=== PATIENT | male | born 1955 | race African-American/Black ===

== ENCOUNTER 2017-04-12 11:20 | Inpatient (IN) ==
[2017-04-12] MEDS ORDERED: DEXTROSE 50% 25 GM/50 ML SYRINGE IV PRN (11:24)
[2017-04-12] MEDS ORDERED: GLUCAGON 1 MG VIAL IM PRN (11:24)
[2017-04-12] MEDS ORDERED: ACETAMINOPHEN 325 MG TABLET PO PRN (11:24)
[2017-04-12] MEDS ORDERED: ONDANSETRON 4 MG/2 ML VIAL IV PRN (11:24)
--- NOTE | 2017-04-12 11:39 | Family Practice History&Phys ---
Assessment and Plan (1) Recent cerebrovascular accident (CVA) Status: Acute Assessment and plan: Will admit to the hospital, rule out new CVA event, Labs , imaging CT head without contrast, cardiac evaluation today 2. Consult neurology, physical therapy, get swallow evaluation, 3. Add aspirin 325 mg daily, will hold blood pressure meds since his blood pressure is not that high. 4. For diabetes, will do sliding scale with fingersticks before every meal [facility]. Current Visit: Yes (2) Hypertension, essential Status: Chronic Current Visit: Yes (3) Type 2 diabetes mellitus Status: Chronic Current Visit: Yes (4) Nicotine dependence, cigarettes, uncomplicated Status: Chronic Current Visit: Yes (5) Alcohol abuse Status: Chronic Current Visit: Yes History of Present Illness Chief complaint: weakness of rt face, rt UE, and slurry speech since 04/09/17 History of present illness: Mr. Vargas is a 61 year old male pt came to the clinic as walkin , accompanied by , pt came to see eye clinic this AM , , he noticed stroke signs and advised pt to come to my clinic today, pt had symptoms of facial weakness, slurry speech 04/09/17 , went [facility] on 04/[facility], signed off AMA, noticed rt hand/arm new weakness, since yesterday pm, dropping things, walking ok, still has facial weakness rt , speech slurry, no problem swallowing , or taste, lisinopril causing him cough, no chest pain , palpitations, , headaches, dizziness, no head injury has h/o HTN/DM and smokes 1PPD /drinks 2-3 beers everyday,. Home Medications Medication Instructions Recorded Confirmed Type No Known Home Medications [No 03/18/17 03/21/17 History Known Home Medications] Allergies Allergy/AdvReac Type Severity Reaction Status Date / Time No Known Allergies Allergy Unverified 03/21/17 08:08 - Constitutional Constitutional: Present: as per HPI - EENT Eyes: Present: as per HPI Nose, mouth and throat: Present: as per HPI - Cardiovascular Cardiovascular: Present: as per HPI - Respiratory Respiratory: Present: as per HPI - Gastrointestinal Gastrointestinal: Present: as per HPI - Genitourinary Genitourinary: Present: as per HPI - Musculoskeletal Musculoskeletal: Present: as per HPI - Neurological Neurological: Present: as per HPI - Psychiatric Psychiatric: Present: as per HPI - Endocrine Endocrine: Present: as per HPI Medical,Surgical,& Family Hx - Medical History Cardio: History of: Hypertension No history of: Cardiac Dysrhythmia, CHF, [place], Valvular Heart Disease Neurology: No history of: Brain Aneurysm, Cerebrovascular Accident, Dementia, Migraine, Seizures HEENT: History of: Eye Problem (blurred vision), HEENT Problems (sinuses) Endocrine: History of: Diabetes Mellitus (NIDDM) Rheumatology: History of;: Rheumatoid Arthritis Respiratory: No history of: Obstructive Sleep Apnea Gastrointestinal: History of: GERD Musculoskeletal: History of: Back/Neck Problems (stiffness in neck) Hematology: No history of: Blood Transfusion Reaction Other: No history of: Anesthesia Reactions - Surgical History Cardiac Surgeries: Patient Denies: Cardiac Catheterization Thoracic Surgeries: Patient denies;: Organ Transplant Neurologic Surgeries: Patient denies: Brain Aneurysm HEENT Surgeries: Surgical HX of: Eye Surgery (Cataract Surgery) Abdominal Surgeries: Surgical HX of: Colonoscopy - Family History Family History: Reports;: Family Diabetes (sisters brothers), Family Heart Disease (father) - Social History Smoking Status: Current every day smoker Exam - Constitutional Vitals: From clinic. Temp 97.8, HR 89, RR 16, BP 130/90, Ht 68, Wt 138.6, BMI 21.07, Oxygen sat % 97. Exam: GENERAL APPEARANCE: alert and oriented, mildly confused, pleasant, in no acute distress, male patient was brought to the clinic in a wheelchair. HEENT: normal . EYES: extraocular movement intact (EOMI), conjunctiva clear, normal . NECK/THYROID: neck supple, full range of motion, no cervical lymphadenopathy, no thyromegaly . HEART: regular rate and rhythm, no murmurs, rubs, gallops . LUNGS: clear to auscultation bilaterally, no wheezes, rales, rhonchi . ABDOMEN: soft, nontender, nondistended, no organomegaly , bowel sounds present . EXTREMITIES: no edema . NEUROLOGIC: alert and oriented 2, speaks slurry, mildly confused, Angle of the mouth deviated to the left. Strength of the neck muscles decreased on the right side. Strength 5/5 left upper extremity, 4+/ 5 right upper extremity. Bilateral lower extremity strength 5/ 5. .
--- NOTE | 2017-04-12 12:06 | EKG Report ---
Stationary ECG Study [facility] Test Date: 04/12/2017 11:56:28 AM Pat Name: RICHARD AVILA Department: Room: 537 Gender: M Hearing Aid Dispenser: : 1955 Requested by: Eva Castillo Order Number: [id number] Reading MD: SAMARA WEISS Intervals [place] Rate: 67 P: 63 MS: 137 QRS: 72 QRSD: 89 T: -14 QT: 376 QTc: 391 Interpretive Statements SINUS RHYTHM NONSPECIFIC T-WAVE ABNORMALITY Electronically Signed On 04-12-17 15:51:29 CDT by SAMARA WEISS [email or web address]
[2017-04-12] MEDS: INSULIN REGULAR 100 UNIT/ML SUBCUT SCH ×3 (12:10→20:37)
--- NOTE | 2017-04-12 12:28 | CT Report ---
CT of the head without contrast. Indication: Weakness and slurring of speech. Comparison: April 09, 2017. There is generalized prominence of the ventricles and sulci consistent with age-appropriate atrophy. There is no mass effect or midline shift. There is no evidence of acute hemorrhage. Within the white matter of the left cerebral hemisphere, including the temporal lobe and parietal lobe and within the occipital lobe, there are increasing foci of low density compared to the recent previous study. There are mild to moderate more diffuse areas of low density in the right cerebral white matter, stable, and consistent with chronic microvascular ischemia. No definite cortical infarcts seen at this time. The calvarium is intact. Included paranasal sinuses and the mastoid air cells are clear. Impression: Interval progression of low density in the white matter involving the left temporal, parietal, and occipital lobes. Further evaluation with MRI recommended. Progression this time frame is most consistent with ischemia. The CT exam was performed using one or more of the following dose reduction techniques: Automated exposure control, adjustment of the mA and/or kV according to patient size, or use of iterative reconstruction technique. PROCEDURE INTERPRETED AT [facility] DEPARTMENT OF RADIOLOGY Final Report Signed by: Dr. Celia Hugo
--- NOTE | 2017-04-12 13:13 | Ultrasound Report ---
CAROTID ULTRASOUND Comparison: None. Findings: Grayscale, color Doppler and pulsed Doppler interrogation of the carotid and vertebral arteries performed. Severity of stenosis based on flow velocity measurements using NASCET criteria. Ultrasound images are captured and stored. Distal right ICA diameter: 4.6 mm Distal left ICA diameter: 4.6 mm Peak systolic flow velocities in centimeters per second are as follows: Right: CCA: 59 Proximal ICA: 47 Distal ICA: 80 ICA/CCA ratio: 1.4 Left: CCA: 80 Proximal ICA: 37 Distal ICA: 72 ICA/CCA ratio: 0.9 External carotid arteries: Both are patent with antegrade flow. Vertebral arteries: Both are patent with antegrade flow. Grayscale and color Doppler images: No significant focal plaque deposition identified, with normal color Doppler flow present. Pulse Doppler waveform interrogation: No significant spectral broadening. Impression: No hemodynamically significant stenosis of either ICA origin. PROCEDURE INTERPRETED AT [facility] DEPARTMENT OF RADIOLOGY Final Report Signed by: Roger Mendoza M.D.
[2017-04-12 13:22] LABS: Basophils # 0.1 10*3/uL (0.0-0.2); Basophils % 0.8 % (0.0-0.8); Eosinophils # 0.1 10*3/uL (0.0-0.87); Eosinophils % 0.8 % (0.00-10.9); Hematocrit 50.4 VOL% (42.0-52.0); Hemoglobin 17.3 GM/DL (14.0-18.0); Immature Granulocytes % 0.3 %; Immature Granulocytes Absolute 0.02 #; Lymphocytes # 1.5 10*3/uL (1.4-4.0); Lymphocytes % 24.7 % (21.2-54.2); Mean Corpuscular HGB Conc 34.3 GM/DL (32-36); Mean Corpuscular Hemoglobin 28 PG (27-34); Mean Corpuscular Volume 81.7 FL (87-102); Mean Platelet Volume 11.1 FL (9.6-12.0); Monocytes # 0.6 10*3/uL (0.11-0.8); Neutrophils # 3.9 10*3/uL (1.4-7.4); Neutrophils % 64.4 % (38.7-73.9); Platelet Count 181 T/CUMM (130-400); Red Blood Count 6.17 MC/CUMM (3.8-5.5); White Blood Count 6.1 T/CUMM (4-12)
--- NOTE | 2017-04-12 13:23 | XRay Report ---
XR chest 2V Indication: Shortness of breath. Chest 2 views: Comparison 04/09/2017. Heart size and mediastinal contour remain normal. Scattered calcified granulomata are again shown. No new infiltrates are present. There is mild chronic scarring the central lungs again demonstrated. Impression: No acute cardiopulmonary disease. PROCEDURE INTERPRETED AT [facility] DEPARTMENT OF RADIOLOGY Final Report Signed by: Roger Mendoza M.D.
[2017-04-12 13:44] LABS: Albumin 4.5 G/DL (3.4-5.0); Bilirubin,Total 1.2 MG/DL (0.2-1.0); Calcium 9.6 MG/DL (8.5-10.1); Osmolality,Calculated 273.8 MOS/KG (273-304); Potassium 4.8 MMOL/L (3.5-5.1); Total Protein 8.5 G/DL (6.4-8.3)
--- NOTE | 2017-04-12 14:58 | Neurology Consult Note ---
History of Present Illness History of present illness: 7 years old right-handed -Japanese gentleman with past medical history significant for hypertension, diabetes, 40 pack years history of smoking and alcoholism admitted the hospital with fairly acute onset of slurred speech and right-sided weakness. Symptoms basically started this past Tuesday. On 2016 he did come to the ER for the evaluation however the sign off AMA. Patient saw an ophthalmic surgeon today who noticed some stroke signs and recommend to see PCP and eventually he is being admitted to the hospital for further evaluation. Never had a stroke like symptoms before. No headache swallowing problems dizziness nausea vomiting reported. MRI revealed left temporoparietal and frontal low density changes suggestive of acute or subacute stroke. Carotid Dopplers reveals no hemodynamically significant stenosis. BUN/ creatinine is slightly elevated however lipid panel has not been done. Home Medications Medication Instructions Recorded Confirmed Type Aspirin EC Tab 81 mg PO DAILY 04/12/17 04/12/17 History Lisinopril/Hydrochlorothiazide 1 each PO DAILY 04/12/17 04/12/17 History [Lisinopril-Hctz 10-12.5 mg Tab] Metformin HCl 500 mg PO BID W/MEALS 04/12/17 04/12/17 History Moxifloxacin 0.5% Oph Soln 1 drop BOTH EYES QID 04/12/17 04/12/17 History [Vigamox 0.5% Oph Soln] Prednisolone Sod Phosphate 1 drops BOTH EYES QID 04/12/17 04/12/17 History [PrednisoLONE Sodium Phos 1% Oph Soln] Allergies Allergy/AdvReac Type Severity Reaction Status Date / Time No Known Allergies Allergy Unverified 03/21/17 08:08 12 point system: reviewed and no additional remarkable complaints except as stated Medical,Surgical,& Family Hx - Medical History Cardio: History of: Hypertension No history of: Cardiac Dysrhythmia, CHF, [place], Valvular Heart Disease Neurology: No history of: Brain Aneurysm, Cerebrovascular Accident, Dementia, Migraine, Seizures HEENT: History of: Eye Problem (blurred vision), HEENT Problems (sinuses) Endocrine: History of: Diabetes Mellitus (NIDDM) Rheumatology: History of;: Rheumatoid Arthritis Respiratory: No history of: Obstructive Sleep Apnea Gastrointestinal: History of: GERD Musculoskeletal: History of: Back/Neck Problems (stiffness in neck) Hematology: No history of: Blood Transfusion Reaction Other: No history of: Anesthesia Reactions - Surgical History Cardiac Surgeries: Patient Denies: Cardiac Catheterization Thoracic Surgeries: Patient denies;: Organ Transplant Neurologic Surgeries: Patient denies: Brain Aneurysm HEENT Surgeries: Surgical HX of: Eye Surgery (Cataract Surgery) Abdominal Surgeries: Surgical HX of: Colonoscopy - Family History Family History: Reports;: Family Diabetes (sisters brothers), Family Heart Disease (father), Family Stroke (brother) Denies;: Family Anesthesia Reaction, Family Cancer, Family Hematology, Family Hypertension, Family Psychiatric Problems, Additional Family History - Social History Smoking Status: Current every day smoker Frequency of Alcohol Use: Frequently Type of Drug Use: None Exam - Constitutional Vitals: Period Temp Pulse Resp BP Sys/Zhao Pulse Ox Last 24 Hr 97.2 F 65 18 160/79 95 Exam: GENERAL: Patient is in no acute distress. NECK: Neck is supple. There is no JVD. No carotid bruits present. No thyroid masses. CVS: First and second heart sounds are normal. There is no S3 present. Regular rate and rhythm. RESPIRATORY: Lungs are clear to auscultation without any rales or rhonchi. ABDOMEN: Soft and non-tender. Bowel sounds are present. There is no hepatosplenomegaly. EXT: There is no palpable edema. Peripheral pulses are present. Skin: No rashes Central Nervous system: General: Alert, awake and Oriented x 3 Speech: Fluent Comprehension: Intact and normal Facial expressions: Normal Cranial Nerves: CN1/Olfactory: Normal CN II/ Optic: Normal, Visual Mueller unreliable CN III, and : TEO & EOMI CN V: Normal & intact CN VII: Right central facial weak CNVIII: Normal CN XI/X/XI/XII: Intact and Normal Motor: Bulk and Tone is normal. Strength in the right 4/5 Strength in the left 5/5 Sensory: Grossly intact for all the modalities of PP, LT and temp sense Reflexes: 1+ and symmetrical Cerebellar function: Normal finger to nose and heel to martinez testing. Toes: Equivocal Gait: Not tested at this time however he reported that he can get up and walk Results - Labs CBC & BMP: 04/12/17 13:02 04/12/17 13:02 Assessment and Plan (1) Acute CVA (cerebrovascular accident) Status: Acute Assessment and plan: Agree with aspirin a day. MRI and MRA of the brain Lipid panel Echocardiogram Consult PT OT and ST Current Visit: Yes (2) Alcohol abuse Status: Chronic Assessment and plan: Counseled him regarding cessation of alcoholism Current Visit: Yes (3) Hypertension, essential Status: Chronic Assessment and plan: Continue current medications. Check vitals per routine. Current Visit: Yes (4) Nicotine dependence, cigarettes, uncomplicated Status: Chronic Assessment and plan: Counseled him regarding cessation of smoking Current Visit: Yes (5) Type 2 diabetes mellitus Status: Chronic Assessment and plan: Continue Accu-Cheks with a sliding scale coverage Current Visit: Yes
--- NOTE | 2017-04-12 17:27 | Magnetic Resonance Report ---
MRI of the brain with and without contrast. Indication: CVA. 20 cc Dotarem Axial diffusion, sagittal T1, axial T2, axial gradient echo, axial FLAIR, axial T1 pre and postcontrast, coronal T1 postcontrast, and axial ADC images were obtained. No prior studies. The appearance of the craniovertebral junction is within normal limits. There is a partial empty sella. The contents of the internal auditory canals are unremarkable. The ventricles and sulci are prominent consistent with atrophy of aging, probably advanced for the patient's age. The venous sinuses are patent. Within the simone, and within the white matter of both cerebral hemispheres, there are areas of increased T2 and FLAIR signal consistent with chronic microvascular ischemia. Within the white matter and cortex of the left cerebral hemisphere, there are multiple discrete foci of varying sizes of increased T2, FLAIR, and diffusion signal, consistent with acute or early subacute ischemic foci. Some of these foci demonstrate very small amounts of petechial hemorrhage noted on the T1 without contrast sequences. Some of these demonstrate areas of enhancement following contrast administration. This is a linear pattern of enhancement with minimal nodularity. There is diminished flow void seen within the left middle cerebral artery territory. There is mild mucosal thickening within the paranasal sinuses. There is a 9 mm polypoid lesion along the left aspect of the posterior wall of the nasopharynx. Impression: 1. There is generalized atrophy, somewhat prominent for the patient's age. 2. There are moderate findings of chronic microvascular ischemia. 3. Within the left cerebral hemisphere, there are multiple foci of abnormal signal involving the left posterior frontal lobe, temporal lobe, and parietal lobe, consistent with early subacute or acute ischemic foci. While these are all in the left MCA distribution, the discrete nature does suggest the possibility of multiple embolic foci. There is evidence of petechial hemorrhage and luxury reperfusion of multiple of these foci. Because of the enhancement present, a follow-up exam will be necessary to a sure that these lesions involve in a manner consistent with ischemia. 4. 9 mm superficial polypoid lesion in the posterior left nasopharynx which needs direct visualization for further evaluation. 5. Mild paranasal sinus disease. MRA of the carotid bifurcations with and without contrast. Same dose of 20 cc Dotarem. MIP 3-D [id number] and contrasted sequences were performed. There are no prior studies available for comparison. Normal columns of flow are seen from the origins of both common carotid arteries to the bifurcations. The extracranial carotid arteries are of normal caliber and configuration. No areas of stenosis noted. The left vertebral artery is dominant and demonstrates a normal column of flow to the level of the skull base. The right vertebral artery is narrow and demonstrates areas of narrowing throughout its length but the flow was not occluded. Impression: No evidence of hemodynamically significant narrowing of either common carotid artery or internal carotid artery. The right vertebral artery demonstrates diminished flow and irregularity and multifocal stenosis. MRA of the [place] of [place]. 3-D eigl-wa-wmotod and MIP images were obtained. No prior studies. Markedly diminished flow is noted within the right vertebral artery, which is narrowed. It does appear to be patent. The left vertebral artery is of normal caliber. The basilar artery is of normal caliber. There is a left posterior communicating artery but no definite right posterior communicating artery there is diminished flow throughout the length of both posterior cerebral arteries with only patchy noncontiguous areas of flow seen. There is mild narrowing of both cavernous intracranial internal carotid arteries, left greater than right. There is diminished flow involving the left middle cerebral artery and its branches. A few of the branches do demonstrate flow presents. There are significant areas of stenosis noted. The right middle cerebral artery circulation appears essentially normal. Good flow is seen in both anterior cerebral arteries. Impression: 1. There is significantly diminished, patchy flow noted within the left middle cerebral artery and its branches. 2. Similar very poor flow is seen in both posterior cerebral arteries. 3. Diminished flow in the right vertebral artery. PROCEDURE INTERPRETED AT [facility] DEPARTMENT OF RADIOLOGY Final Report Signed by: Dr. Celia Hugo
[2017-04-12] MEDS: ROSUVASTATIN 20 MG TABLET PO SCH (20:37)
[2017-04-12] MEDS: DOCUSATE SODIUM 100 MG CAPSULE PO SCH (20:38)
[2017-04-12 21:13] LABS: Barbiturates Screen,Urine Negative (Negative); Benzodiazepines Screen,Urine Negative (Negative); Cannabinoid Screen,Urine Negative (Negative); Opiate Screen,Urine Negative (Negative); Phencyclidine Screen,Urine Negative (Negative)
[2017-04-13 07:10] LABS: Risk Ratio 3.93; VLDL CHOLESTEROL 17.2 MG/DL
[2017-04-13] MEDS: ASPIRIN 325 MG TABLET PO SCH (08:25)
[2017-04-13] MEDS: DOCUSATE SODIUM 100 MG CAPSULE PO SCH ×2 (08:25→20:47)
[2017-04-13] MEDS: PANTOPRAZOLE 40 MG TABLET PO SCH (08:25)
[2017-04-13] MEDS: INSULIN REGULAR 100 UNIT/ML SUBCUT SCH ×4 (08:26→20:46)
--- NOTE | 2017-04-13 08:43 | Family Practice Progress Note ---
Family Practice - PN: Subj Interval history: pt seen and examined on 5th floor, accompanied by his at the bedside. Patient admitted for CVA. History of hypertension, diabetes, alcohol abuse, current smoker 1 PPD. 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 Turner. Has right facial weakness, right-sided weakness, more at the upper extremity No new weakness noted as per the patient, . No difficulty to swallow, is having breakfast. No overnight events reported by the nurse. Exam (Progress Note) - Constitutional Vitals: Period Temp Pulse Resp BP Sys/Zhao Pulse Ox Last 24 Hr 97.2 F-98.2 F 65-80 18-20 125-160/79-93 95-98 Exam: GENERAL APPEARANCE: alert and oriented, , pleasant, in no acute distress, male patient, lying in the bed, HEENT: normal . EYES: extraocular movement intact (EOMI), conjunctiva clear, normal . NECK/THYROID: neck supple, full range of motion, no cervical lymphadenopathy, no thyromegaly . HEART: regular rate and rhythm, no murmurs, rubs, gallops, no carotid bruit. LUNGS: clear to auscultation bilaterally, no wheezes, rales, rhonchi . ABDOMEN: soft, nontender, nondistended, no organomegaly , bowel sounds present . EXTREMITIES: no edema . NEUROLOGIC: alert and oriented 2, speaks slurry, Angle of the mouth deviated to the left. Strength of the neck muscles decreased on the right side. Strength 5/5 left upper extremity, 4+/ 5 right upper extremity. Right lower extremity 4/5, left lower extremity 5/5? . Results - Labs CBC & BMP: 04/12/17 13:02 04/12/17 13:02 Lab Results: I have reviewed the past 24 hour labs Labs: Lipid panel triglyceride 86, LDL 112, HDL 41. Hemoglobin A1c 9.7. Urine drug screen negative, Serum alcohol less than 15 - Impressions MRA head/neck Impression: 1. There is significantly diminished, patchy flow noted within the left middle cerebral artery and its branches. 2. Similar very poor flow is seen in both posterior cerebral arteries. 3. Diminished flow in the right vertebral artery. MRI brain, Impression: 1. There is generalized atrophy, somewhat prominent for the patient's age. 2. There are moderate findings of chronic microvascular ischemia. 3. Within the left cerebral hemisphere, there are multiple foci of abnormal signal involving the left posterior frontal lobe, temporal lobe, and parietal lobe, consistent with early subacute or acute ischemic foci. While these are all in the left MCA distribution, the discrete nature does suggest the possibility of multiple embolic foci. There is evidence of petechial hemorrhage and luxury reperfusion of multiple of these foci. Because of the enhancement present, a follow-up exam will be necessary to a sure that these lesions involve in a manner consistent with ischemia. 4. 9 mm superficial polypoid lesion in the posterior left nasopharynx which needs direct visualization for further evaluation. 5. Mild paranasal sinus disease. Assessment and Plan (1) Recent cerebrovascular accident (CVA) Status: Acute Assessment and plan: Continue aspirin, not on blood pressure meds, PT/OT continue, follow recommendations as per the neurologist. 2. Hypertension, controlled currently 3. Diabetes, on sliding scale insulin. Current Visit: Yes (2) Hypertension, essential Status: Chronic Current Visit: Yes (3) Type 2 diabetes mellitus Status: Chronic Current Visit: Yes (4) Nicotine dependence, cigarettes, uncomplicated Status: Chronic Current Visit: Yes (5) Alcohol abuse Status: Chronic Current Visit: Yes Quality Measures - VTE Contraindication to Pharmacological VTE Prophylaxis: High Risk of Bleeding - Stroke Onset of Symptoms Date: 04/09/17 Presenting Symptoms: Right hemiparesis
--- NOTE | 2017-04-13 10:57 | ECHO Report ---
Keith Vargas Exam Date: 04/12/2017 14:27 Referring Physician: Technologist: Claire Varela RDCS Age: 61 Ht (in): 68 Wt (lb): 138 Gender: M Exam Location: [facility] Indications: Right sided weakness, Slurred speech, Essential (primary) hypertension, NIDDM, Nicotine dependence, cigarettes, uncomplicated BP: 130 / 90 HR: 90 Rhythm: Sinus Technical Quality: IMPRESSIONS Technically adequate study Normal chamber sizes 1+ concentric LVH Normal LV systolic function with ejection fraction estimated be 65% without segmental wall motion mildly 1+ tricuspid regurgitation with RVSP 28 mmHg plus RAP No obvious cardioembolic source noted Sinus rhythm noted. MEASUREMENTS (Male / Female) Normal Values 2D ECHO LV Diastolic Diameter PLAX 4.4 cm 4.2 - 5.9 / 3.9 - 5.3 cm LV Systolic Diameter PLAX 2.5 cm LV Fractional Shortening PLAX 42.0 % IVS Diastolic Thickness 1.0 cm 0.6 - 1.0 / 0.6 - 0.9 cm LVPW Diastolic Thickness 1.0 cm 0.6 - 1.0 / 0.6 - 0.9 cm RV Internal Dim ED PLAX 3.3 cm Aortic Root Diameter 2.6 cm LA Systolic Diameter LX 3.2 cm 3.0 - 4.0 / 2.7 - 3.8 cm DOPPLER TR Peak Velocity 262.0 cm/s TR Peak Gradient 27.5 mmHg FINDINGS Left Ventricle Normal left ventricular cavity size. Normal left ventricular wall thickness. Left ventricular ejection fraction is estimated at 65 %. Right Ventricle The right ventricle is normal in size and function. Right Atrium The right atrium is normal in size. Left Atrium The left atrium is normal in size. Mitral Valve Morphologically normal mitral valve without significant stenosis or prolapse. There is no mitral regurgitation. Aortic Valve Morphologically normal aortic valve without significant sclerosis or stenosis. There is no aortic regurgitation. Tricuspid Valve Morphologically normal tricuspid valve. Trace to mild tricuspid valve regurgitation. Tricuspid regurgitation velocities suggest a PAP of 37 mmHg. Pulmonic Valve Morphologically normal pulmonic valve without significant stenosis. There is no pulmonic regurgitation. Pericardium Normal pericardium without effusion. Aorta Normal ascending aorta dimension. J Luis Delcid (Electronically Signed) Final Date: 13 April 2017 10:56
[2017-04-13 11:12] LABS: Basophils % 0.7 % (0.0-0.8); Eosinophils # 0.1 10*3/uL (0.0-0.87); Eosinophils % 1.4 % (0.00-10.9); Hematocrit 47.2 VOL% (42.0-52.0); Hemoglobin 16.3 GM/DL (14.0-18.0); Immature Granulocytes % 0.2 %; Immature Granulocytes Absolute 0.01 #; Lymphocytes # 1.2 10*3/uL (1.4-4.0); Lymphocytes % 27.6 % (21.2-54.2); Mean Corpuscular HGB Conc 34.5 GM/DL (32-36); Mean Corpuscular Hemoglobin 28 PG (27-34); Mean Corpuscular Volume 82.1 FL (87-102); Monocytes # 0.6 10*3/uL (0.11-0.8); Monocytes % 12.4 % (1.7-12.7); Neutrophils # 2.6 10*3/uL (1.4-7.4); Neutrophils % 57.7 % (38.7-73.9); Platelet Count 170 T/CUMM (130-400); Red Blood Count 5.75 MC/CUMM (3.8-5.5); White Blood Count 4.4 T/CUMM (4-12)
[2017-04-13 11:50] LABS: Calcium 9.3 MG/DL (8.5-10.1); Osmolality,Calculated 282.4 MOS/KG (273-304); Potassium 4.5 MMOL/L (3.5-5.1)
--- NOTE | 2017-04-13 15:13 | Neurology Progress Note ---
Neurology - PN : Subjective Interval history: Patient seems to be doing much better. MRI and MRA report noted. Patient has multiple acute infarcts in the left MCA distribution which is embolic in nature. He is able to get up and walk without assistance. Exam (Progress Note) - Constitutional Vitals: Period Temp Pulse Resp BP Sys/Zhao Pulse Ox Last 24 Hr 97.4 F-98.2 F 69-80 18-20 125-146/78-93 92-98 Exam: GENERAL: Patient is in no acute distress. NECK: Neck is supple. There is no JVD. No carotid bruits present. No thyroid masses. CVS: First and second heart sounds are normal. There is no S3 present. Regular rate and rhythm. RESPIRATORY: Lungs are clear to auscultation without any rales or rhonchi. ABDOMEN: Soft and non-tender. Bowel sounds are present. There is no hepatosplenomegaly. EXT: There is no palpable edema. Peripheral pulses are present. Skin: No rashes Central Nervous system: General: Alert, awake and Oriented x 3 Speech: Fluent Comprehension: Intact and normal Facial expressions: Normal Cranial Nerves: CN1/Olfactory: Normal CN II/ Optic: Normal, Visual Mueller unreliable CN III, and : TEO & EOMI CN V: Normal & intact CN VII: Right central facial weak CNVIII: Normal CN XI/X/XI/XII: Intact and Normal Motor: Bulk and Tone is normal. Strength in the right 4/5 Strength in the left 5/5 Sensory: Grossly intact for all the modalities of PP, LT and temp sense Reflexes: 1+ and symmetrical Cerebellar function: Normal finger to nose and heel to martinez testing. Toes: Equivocal Gait: Walking without assistance independently Results - Labs CBC & BMP: 04/13/17 11:05 04/13/17 11:05 Assessment and Plan (1) Acute CVA (cerebrovascular accident) Status: Acute Assessment and plan: Continue aspirin a day Add Plavix 75 mg Outpatient PT and OT Follow-up in 4 weeks Current Visit: Yes (2) Alcohol abuse Status: Chronic Assessment and plan: Counseled him regarding cessation of alcoholism Current Visit: Yes (3) Hypertension, essential Status: Chronic Assessment and plan: Continue current medications. Check vitals per routine. Current Visit: Yes (4) Nicotine dependence, cigarettes, uncomplicated Status: Chronic Assessment and plan: Counseled him regarding cessation of smoking Current Visit: Yes (5) Type 2 diabetes mellitus Status: Chronic Assessment and plan: Continue Accu-Cheks with a sliding scale coverage Current Visit: Yes Quality Measures - VTE Contraindication to Pharmacological VTE Prophylaxis: High Risk of Bleeding - Stroke Onset of Symptoms Date: 04/09/17 Presenting Symptoms: Right hemiparesis Specialty Discharge - Follow Up or Referrals Follow up with: Marvel Turner MD [Physician] - 1 Month
[2017-04-13] MEDS: ROSUVASTATIN 20 MG TABLET PO SCH (20:47)
--- NOTE | 2017-04-14 08:42 | Discharge Summary ---
Hospital Course - Hospital Course Hospital Course: Mr. Vargas is a 61 year old male Chief complaint was: Weakness of rt face, rt UE, and slurry speech since 04/09/17 pt had symptoms of facial weakness, slurry speech 04/09/17 , went to [facility] [facility] on 04/09, signed off AMA, has h/o HTN/DM and smokes 1PPD /drinks 2-3 beers everyday,. Came on 04/12/[address] Mancilla's ophthalmology clinic, was noticed to have rt hand/arm new weakness, The patient was seen in my clinic, as per request of Dr. Mancilla, Patient was admitted to the hospital, Probation And Parole Officer on case: Dr. Turner, Neurologist. as per history the present symptoms were going on since yesterday 04/11/2017, dropping things from right hand, walking ok, still has facial weakness rt , speech slurry, no problem swallowing , or taste, no chest pain , palpitations, , headaches, dizziness, no head injury. Extensive imagings were done found to have subacute and acute ischemic changes in the MRI, MRA head and neck( please refer to results). Urine drug screen was negative, blood alcohol level was less than 15, A1c was 9.7. Cardiac workup was also done( please refer to the results) Swallow evaluation was done,no difficulty swallowing was noted, physical therapy , occupational therapy consulted. Since his blood pressure was not that high, antihypertensives were held, aspirin 325, Plavix 75 mg started while in the hospital,. Was put on sliding scale insulin for diabetes Patient weakness improved on the right face mildly, speech a bit better at the time of discharge. Patient, and the caregiver refused swing bed placement, but willing for outpatient physical and occupational therapy. Also willing for home health with physical therapy to follow. Discussed with patient, about smoking cessation, patient wants to stop smoking, not willing for nicotine patch. Also discussed about stopping drinking alcohol. Diagnosis - Discharge Diagnosis (1) Recent cerebrovascular accident (CVA) Status: Acute (2) Hypertension, essential Status: Chronic (3) Type 2 diabetes mellitus Status: Chronic (4) Nicotine dependence, cigarettes, uncomplicated Status: Chronic (5) Alcohol abuse Status: Chronic Specialty Discharge - Follow Up or Referrals Follow up with: Marvel Turner MD [Physician] - 1 Month Discharge Plan - Discharge Data Disposition: Disch To Home/Self Care Condition at Discharge: Stable Discharge Diet: low salt diet Activity: as per physical therapy - Discharge Medications New RX: Aspirin Tab 325 mg PO DAILY #30 tablet RX: Clopidogrel [Plavix] 75 mg PO DAILY #30 tablet Glipizide/Metformin HCl [Glipizide-Metformin 5-500 mg] 1 each PO BID W/MEALS #60 tablet RX: Rosuvastatin [Crestor] 40 mg PO BEDTIME #30 tablet amLODIPine [Norvasc] 2.5 mg PO DAILY #30 tablet Continue RX: Moxifloxacin 0.5% Oph Soln [Vigamox 0.5% Oph Soln] 1 drop BOTH EYES QID RX: Prednisolone Sod Phosphate [PrednisoLONE Sodium Phos 1% Oph Soln] 1 drops BOTH EYES QID Discontinued Lisinopril/Hydrochlorothiazide [Lisinopril-Hctz 10-12.5 mg Tab] 1 each PO DAILY RX: Aspirin EC Tab 81 mg PO DAILY RX: Metformin HCl 500 mg PO BID W/MEALS - Follow Up or Referral Follow Up: Marvel Turner MD [Physician] - 1 Month Eva Castillo MD [Primary Care Provider] - (10 days) - Forms/Instructions Instructions: Ischemic Stroke (DC), Self Care Measures After a Stroke (DC) Exam - Constitutional Vitals: Period Temp Pulse Resp BP Sys/Zhao Pulse Ox Last 24 Hr 97.4 F-98.7 F 67-77 16-20 114-152/68-90 92-100 Exam: GENERAL APPEARANCE: alert and oriented, , pleasant, in no acute distress, male patient, lying in the bed, HEENT: normal . EYES: extraocular movement intact (EOMI), conjunctiva clear, normal . NECK/THYROID: neck supple, full range of motion, no cervical lymphadenopathy, no thyromegaly . HEART: regular rate and rhythm, no murmurs, rubs, gallops, no carotid bruit. LUNGS: clear to auscultation bilaterally, no wheezes, rales, rhonchi . ABDOMEN: soft, nontender, nondistended, no organomegaly , bowel sounds present . EXTREMITIES: no edema . NEUROLOGIC: alert and oriented 2, speaks slurry, Angle of the mouth deviated to the left, compared with yesterday the deviation is less.. Strength of the neck muscles decreased on the right side. Strength 5/5 left upper extremity, 4+/ 5 right upper extremity. Right lower extremity 4/5, left lower extremity 5/5? . Discharge Results Labs on day of discharge: Labs from last 24 hours 04/14/17 04/13/17 04/13/17 08:11 19:54 15:47 WBC RBC Hgb Hct MCV MCH MCHC RDW Plt Count MPV Neut % (Auto) Lymph % (Auto) [place] % (Auto) Eos % (Auto) Baso % (Auto) Neut # (Auto) Lymph # (Auto) [place] # (Auto) Eos # (Auto) Baso # (Auto) Immature Gran % Nucleated RBC % Immature Gran # Nucleated RBCs # Immature Plt Fraction Sodium Potassium Chloride Carbon Dioxide Anion Gap BUN Creatinine GFR Calculation BUN/Creatinine Ratio Glucose POC Glucose 160 H 308 H 71 L Calculated Osmolality Calcium 04/13/17 04/13/17 04/13/17 11:05 11:05 11:02 WBC 4.4 RBC 5.75 H Hgb 16.3 Hct 47.2 MCV 82.1 L MCH 28 MCHC 34.5 RDW 13.0 Plt Count 170 MPV 11.0 Neut % (Auto) 57.7 Lymph % (Auto) 27.6 [place] % (Auto) 12.4 Eos % (Auto) 1.4 Baso % (Auto) 0.7 Neut # (Auto) 2.6 Lymph # (Auto) 1.2 L [place] # (Auto) 0.6 Eos # (Auto) 0.1 Baso # (Auto) 0.0 Immature Gran % 0.2 Nucleated RBC % 0.0 Immature Gran # 0.01 Nucleated RBCs # 0.00 Immature Plt Fraction 0.0 Sodium 133 L Potassium 4.5 Chloride 101 Carbon Dioxide 24 Anion Gap 12.5 BUN 31 H Creatinine 1.30 GFR Calculation 68 BUN/Creatinine Ratio 23.00 H Glucose 271 H POC Glucose 309 H Calculated Osmolality 282.4 Calcium 9.3 04/13/17 07:58 WBC RBC Hgb Hct MCV MCH MCHC RDW Plt Count MPV Neut % (Auto) Lymph % (Auto) [place] % (Auto) Eos % (Auto) Baso % (Auto) Neut # (Auto) Lymph # (Auto) [place] # (Auto) Eos # (Auto) Baso # (Auto) Immature Gran % Nucleated RBC % Immature Gran # Nucleated RBCs # Immature Plt Fraction Sodium Potassium Chloride Carbon Dioxide Anion Gap BUN Creatinine GFR Calculation BUN/Creatinine Ratio Glucose POC Glucose 233 H Calculated Osmolality Calcium - Impressions MRA head/neck Impression: 1. There is significantly diminished, patchy flow noted within the left middle cerebral artery and its branches. 2. Similar very poor flow is seen in both posterior cerebral arteries. 3. Diminished flow in the right vertebral artery. MRI brain, Impression: 1. There is generalized atrophy, somewhat prominent for the patient's age. 2. There are moderate findings of chronic microvascular ischemia. 3. Within the left cerebral hemisphere, there are multiple foci of abnormal signal involving the left posterior frontal lobe, temporal lobe, and parietal lobe, consistent with early subacute or acute ischemic foci. While these are all in the left MCA distribution, the discrete nature does suggest the possibility of multiple embolic foci. There is evidence of petechial hemorrhage and luxury reperfusion of multiple of these foci. Because of the enhancement present, a follow-up exam will be necessary to a sure that these lesions involve in a manner consistent with ischemia. 4. 9 mm superficial polypoid lesion in the posterior left nasopharynx which needs direct visualization for further evaluation. 5. Mild paranasal sinus disease. Carotid Doppler Impression: No hemodynamically significant stenosis of either ICA origin. Echocardiogram MPRESSIONS Technically adequate study Normal chamber sizes 1+ concentric LVH Normal LV systolic function with ejection fraction estimated be 65% without segmental wall motion mildly 1+ tricuspid regurgitation with RVSP 28 mmHg plus RAP No obvious cardioembolic source noted Sinus rhythm noted. Chest x-ray from 04/12/2017, no acute process noted DS: Provider Date of admission: 04/12/17 11:24 Primary care physician: Eva Castillo MD Attending physician on admission: Eva Castillo MD Consults: 04/12/17 11:25 Consult to Case Mgmt/Social Srvs [CONS] Routine Reason for Case Mgmt/Social Srvs: Discharge Planning Consult to Case Mgmt/Social Srvs [CONS] Routine Reason for Case Mgmt/Social Srvs: Discharge Planning Consult to Occupational Therapy [CONS] Routine Reason for Occupational Therapy: Evaluate and Treat Consult Comment: Stroke Consult to Physical Therapy [CONS] Routine Reason for Physical Therapy: Evaluate and Treat Consult Comment: stroke 04/12/17 11:29 Consult to Physical Therapy [CONS] Routine Reason for Physical Therapy: Weakness Consult to Physician [CONS] Routine Comment: CVA, Consulting Provider: Marvel Turner Person Notified: Christa Date Notified: 04/12/17 Time Notified: 14:13 Consult Notification Comment: 04/12/17 11:34 Consult to [facility], Educator [CONS] Routine Reason for Bobbin Handler: Diabetes Education 04/12/17 14:37 Consult to Dietitian [CONS] Routine Reason for Dietitian: Diet Instruction Consult Comment: request education of dietary restrictions for DM Discharging clinician: Eva Castillo MD
[2017-04-14] MEDS: ASPIRIN 325 MG TABLET PO SCH (08:57)
[2017-04-14] MEDS: INSULIN REGULAR 100 UNIT/ML SUBCUT SCH ×2 (08:57→11:33)
[2017-04-14] MEDS: PANTOPRAZOLE 40 MG TABLET PO SCH (08:57)
[2017-04-14] MEDS: DOCUSATE SODIUM 100 MG CAPSULE PO SCH (08:57)
[2017-04-14] MEDS ORDERED: CLOPIDOGREL 75 MG TABLET PO SCH (09:00)
[2017-04-14 11:25] VITALS: BP 143/87
== END 2017-04-14 14:10 | disposition home or self-care (01) | DRG 66 ==
LOC: N.5E 11:31
PROVIDERS: ADMIT Family Medicine; ATTEND Family Medicine